=== PATIENT | male | born 1965 | race Caucasian/White ===

== ENCOUNTER 2018-12-04 07:03 | Day surgery (SDC) | payer OTHER ==
[2018-12-04 08:09] LABS: ADD MAN DIFF? NO
[2018-12-04 08:12] LABS: BASOPHILS % 0.6 % (0.0-2.0); EOSINOPHILS # 0.1 10^3/ul (0.0-0.5); EOSINOPHILS % 1.8 % (0.0-7.0); HEMATOCRIT 44.2 % (42.0-52.0); HEMOGLOBIN 14.1 g/dl (14.0-18.0); LYMPHOCYTES % 28.7 % (15.0-51.0); MEAN CORPUSCULAR HEMOGLOBIN 28.9 pg (29.0-33.0); MEAN CORPUSCULAR HGB CONC 31.9 g/dl (32.0-37.0); MEAN CORPUSCULAR VOLUME 90.6 fl (82.0-101.0); MEAN PLATELET VOLUME 9.9 fl (7.4-10.4); MONOCYTE # 0.7 10^3/ul (0.3-0.9); MONOCYTES % 10.9 % (0.0-11.0); NEUTROPHIL # 3.9 10^3/ul (1.6-7.5); NEUTROPHILS % 57.6 % (39.0-77.0); PLATELET COUNT 227 10^3/UL (140-415); RED BLOOD COUNT 4.88 10^6/ul (4.70-6.10); RED CELL DISTRIBUTION WIDTH 13.7 % (11.5-14.5)
[2018-12-04 08:12] LABS: WHITE BLOOD COUNT 6.8 10^3/ul (4.8-10.8)
[2018-12-04] MEDS: DIPHENHYDRAMINE 50 MG CAP PO (08:17)
[2018-12-04] MEDS: FAMOTIDINE 20 MG TAB PO (08:17)
[2018-12-04] MEDS: DIAZEPAM 5 MG TAB PO (08:17)
[2018-12-04] MEDS: SOD CHLORIDE 0.45% 1,000 ML IV (08:18)
[2018-12-04 08:31] LABS: ANION GAP 7 (5-13); BLOOD UREA NITROGEN 16 mg/dl (7-20); CALCIUM 9.3 mg/dl (8.4-10.2); CARBON DIOXIDE 28 mmol/L (21-31); CHLORIDE 107 mmol/L (97-110); CHOL/HDL RATIO 6.6 RATIO; CHOLESTEROL 226 mg/dl (100-200); CREATININE 0.87 mg/dl (0.61-1.24); Estimated GFR > 60 mL/min (>60); GLUCOSE 112 mg/dl (70-220); HDL CHOLESTEROL 34 mg/dl (28-71); LDL CHOLESTEROL,CALCULATED 151 mg/dl; POTASSIUM 3.9 mmol/L (3.5-5.1); SODIUM 142 mmol/L (135-144); TRIGLYCERIDES 206 mg/dl (0-149)
[2018-12-04 08:32] LABS: INR 0.96; PROTIME 12.9 Sec (11.9-14.9)
[2018-12-04] MEDS ORDERED: IODIXANOL LOCM 100 ML BTL (09:00)
[2018-12-04] MEDS ORDERED: VERAPAMIL 5 MG INJ (09:00)
[2018-12-04] MEDS ORDERED: FENTAnyl 50 MCG/ML VIAL (09:00)
[2018-12-04] MEDS ORDERED: HEPARIN 1000 UNITS/NS (A-LINE) 1,000 ML (09:00)
[2018-12-04] MEDS ORDERED: LIDOCAINE 1% (MDV) 20 ML INJ (09:00)
[2018-12-04] MEDS ORDERED: SOD CHLORIDE 0.9% 2,000 ML (09:00)
[2018-12-04] MEDS ORDERED: HEPARIN 1000 UNITS/ML 10 ML INJ (09:00)
[2018-12-04] MEDS ORDERED: MIDAZOLAM 1 MG/ML 2 ML INJ (09:00)
[2018-12-04] MEDS ORDERED: SOD CHLORIDE 0.9% 1,000 ML IV (10:14)
[2018-12-04] MEDS ORDERED: morphine 2 MG INJ IV (10:30)
[2018-12-04] MEDS ORDERED: AL HYDROX/MG HYDROX/SIMETH 30 ML CUP PO (10:30)
[2018-12-04] MEDS ORDERED: ONDANSETRON 4 MG INJ IV (10:30)
[2018-12-04] MEDS ORDERED: HYDROCODONE/APAP (5/325) TAB PO (14:14)
[2018-12-04] MEDS: ACETAMINOPHEN 325 MG TAB PO (14:22)
== END 2018-12-04 14:46 | disposition home or self-care (01) ==
LOC: SDS 07:03
DX: I65.23 Occlusion and stenosis of bilateral carotid arteries (principal); I10 Essential (primary) hypertension; I34.0 Nonrheumatic mitral (valve) insufficiency
CPT/HCPCS: 71045; 80048; 80061; 82962; 85025; 85610; 85730; 93005; 93458